=== PATIENT | female | born 1990 | race Hispanic/Latino ===

== ENCOUNTER 2018-05-25 18:14 | Emergency (ER) | payer OTHER ==
[2018-05-25] MEDS ORDERED: LISINOPRIL 5 MG TABLET ONE (19:29)
[2018-05-25 19:49] LABS: BASOPHILS % (AUTO) 1.4 % (0.0-5.0); EOSINOPHILS % (AUTO) 1.6 % (0.0-8.0); HEMATOCRIT 41.9 % (36-48); LYMPHOCYTES % (AUTO) 40.2 % (21.0-51.0); MEAN CORPUSCULAR HEMOGLOBIN 29.2 pg (27.0-33.0); MEAN CORPUSCULAR HGB CONC 34.1 g/dL (32.0-36.0); MEAN CORPUSCULAR VOLUME 85.5 fL (79-99); MONOCYTES % (AUTO) 3.5 % (3.0-13.0); NEUTROPHILS % (AUTO) 53.3 % (40.0-77.0); PLATELET COUNT (AUTO) 306 K/uL (130-400); RED CELL DISTRIBUTION WIDTH 13.3 % (11.0-15.5)
[2018-05-25 19:49] LABS: BILIRUBIN,URINE Negative (NEGATIVE); COLOR,URINE Yellow (YELLOW); GLUCOSE, URINE (UA) TRACE mg/dL (NEGATIVE); KETONES,URINE Negative (NEGATIVE); LEUKOCYTE ESTERASE ,URINE Negative (NEGATIVE); NITRATE,URINE Negative (NEGATIVE); OCCULT BLOOD,URINE Negative (NEGATIVE); PH,URINE 7.5 (5.0-8.0); PROTEIN,URINE Negative (NEGATIVE)
[2018-05-25 19:58] LABS: CREATININE 0.8 mg/dL (0.5-1.5); POTASSIUM 3.8 mmol/L (3.5-5.1)
[2018-05-25 20:03] LABS: ALBUMIN 3.9 g/dL (3.5-5.0); BILIRUBIN,TOTAL 0.3 mg/dL (0.2-1.0); TOTAL PROTEIN, SERUM 7.3 g/dL (6.0-8.3)
[2018-05-25 20:06] LABS: APPEARANCE,URINE SLIGHTLY CLOUDY (CLEAR)
[2018-05-25 20:07] LABS: AMORPHOUS SEDIMENT,UR Few /LPF (None Seen); BACTERIA,URINE Rare /HPF (None Seen); RBC,URINE 0-1 /HPF (0-1); WBC,URINE 0-1 /HPF (0-1)
[2018-05-25 20:08] LABS: SQUAMOUS EPITHELIAL CELL,UR Few /HPF (0-2)
== END 2018-05-25 21:29 | disposition home or self-care (01) ==
LOC: EDH 18:14
DX: I10 Essential (primary) hypertension (principal); R07.9 Chest pain, unspecified
CPT/HCPCS: 36415; 80053; 81001; 82550; 84484; 85025

== ENCOUNTER 2018-06-17 20:29 | Emergency (ER) | payer OTHER ==
[2018-06-17] MEDS ORDERED: METHYLPREDNISOLONE SOD SUCC 125MG/2ML VIAL ONE (21:00)
[2018-06-17] MEDS ORDERED: FAMOTIDINE 20MG TAB 20 MG TAB ONE (21:00)
[2018-06-17] MEDS ORDERED: DIPHENHYDRAMINE HCL 25 MG CAPSULE ONE (21:01)
== END 2018-06-17 21:59 | disposition home or self-care (01) ==
LOC: EDH 20:29
DX: T78.40XA Allergy, unspecified, initial encounter (principal); I10 Essential (primary) hypertension; X58.XXXA Exposure to other specified factors, initial encounter
CPT/HCPCS: 87880; 96372; 99283; J2930; Q0163

== ENCOUNTER 2018-09-19 19:53 | Emergency (ER) | payer BC, OTHER ==
[2018-09-19 20:44] LABS: APPEARANCE,URINE Clear (CLEAR); BILIRUBIN,URINE Negative (NEGATIVE); COLOR,URINE Yellow (YELLOW); GLUCOSE, URINE (UA) >=1000 mg/dL (NEGATIVE); KETONES,URINE Trace mg/dL (NEGATIVE); LEUKOCYTE ESTERASE ,URINE Negative (NEGATIVE); NITRATE,URINE Negative (NEGATIVE); OCCULT BLOOD,URINE Negative (NEGATIVE); PH,URINE 5.5 (5.0-8.0); PROTEIN,URINE Negative (NEGATIVE)
[2018-09-19 20:48] LABS: HCG,QUAL RESULT NEGATIVE (NEGATIVE)
[2018-09-19 20:49] LABS: BACTERIA,URINE Few /HPF (None Seen); RBC,URINE 0-1 /HPF (0-1)
[2018-09-19 20:50] LABS: SQUAMOUS EPITHELIAL CELL,UR Few /HPF (0-2); WBC,URINE 0-1 /HPF (0-1)
== END 2018-09-19 21:09 | disposition home or self-care (01) ==
LOC: EDH 19:53
DX: B02.9 Zoster without complications (principal); I10 Essential (primary) hypertension
CPT/HCPCS: 81001; 81003; 81025; 87486; 87797

== ENCOUNTER 2018-10-30 21:23 | Inpatient (IN) | payer OTHER ==
[~2018-10-30] VITALS: Ht 160 cm; Wt 87.7 kg
[2018-10-30 21:56] LABS: BASOPHILS % (AUTO) 0.4 % (0.0-5.0); EOSINOPHILS % (AUTO) 0.8 % (0.0-8.0); LYMPHOCYTES % (AUTO) 41.1 % (21.0-51.0); MEAN CORPUSCULAR HEMOGLOBIN 28.6 pg (27.0-33.0); MEAN CORPUSCULAR HGB CONC 34.2 g/dL (32.0-36.0); MEAN CORPUSCULAR VOLUME 83.8 fL (79-99); MONOCYTES % (AUTO) 3.9 % (3.0-13.0); NEUTROPHILS % (AUTO) 53.8 % (40.0-77.0); NUCLEATED RED BLOOD CELLS 0.1 % (0.0-0.19); PLATELET COUNT (AUTO) 329 K/uL (130-400); RED BLOOD CELL COUNT(AUTO) 5.25 MIL/uL (4.00-5.50); RED CELL DISTRIBUTION WIDTH 13.5 % (11.0-15.5); WHITE BLOOD COUNT (AUTO) 8.9 K/uL (4.8-10.8)
[2018-10-30 22:00] LABS: CREATININE 0.7 mg/dL (0.5-1.5); POTASSIUM 3.6 mmol/L (3.5-5.1)
[2018-10-30 22:01] LABS: INR 0.95 (0.85-1.15); PARTIAL THROMBOPLASTIN TIME 25.6 SEC (26.3-35.5)
[2018-10-30 22:06] LABS: ALBUMIN 4.2 g/dL (3.5-5.0); BILIRUBIN,TOTAL 0.4 mg/dL (0.2-1.0); TOTAL PROTEIN, SERUM 7.9 g/dL (6.0-8.3)
[2018-10-30 22:30] LABS: APPEARANCE,URINE Clear (CLEAR); BILIRUBIN,URINE Negative (NEGATIVE); COLOR,URINE Yellow (YELLOW); GLUCOSE, URINE (UA) >=1000 mg/dL (NEGATIVE); KETONES,URINE Negative (NEGATIVE); LEUKOCYTE ESTERASE ,URINE Negative (NEGATIVE); NITRATE,URINE Negative (NEGATIVE); OCCULT BLOOD,URINE Moderate (NEGATIVE); PROTEIN,URINE POS 1+ mg/dL (NEGATIVE)
[2018-10-30] MEDS ORDERED: LORAZEPAM 2 MG/ML 1 ML VIAL ONE (22:30)
[2018-10-30 22:36] LABS: HCG,QUAL RESULT NEGATIVE (NEGATIVE)
[2018-10-30 22:38] LABS: BACTERIA,URINE None Seen /HPF (None Seen); SQUAMOUS EPITHELIAL CELL,UR Few /HPF (0-2); WBC,URINE None Seen /HPF (0-1); YEAST,URINE BUDDING None Seen /HPF (None Seen)
[2018-10-30 22:39] LABS: AMPHET/METH SCREEN,URINE NEGATIVE (NEGATIVE); BARBITURATE SCREEN, URINE NEGATIVE (NEGATIVE); BENZODIAZEPINES SCREEN,URINE NEGATIVE (NEGATIVE); CANNABINOID SCREEN,URINE NEGATIVE (NEGATIVE); COCAINE SCREEN,URINE NEGATIVE (NEGATIVE); OPIATE SCREEN,URINE NEGATIVE (NEGATIVE); PHENCYCLIDINE SCREEN,URINE NEGATIVE (NEGATIVE)
[2018-10-30] MEDS ORDERED: ASPIRIN 81MG TAB.CHEW ONE (23:16)
[2018-10-30] MEDS ORDERED: CLONIDINE HCL 0.1 MG TABLET ONE (23:16)
[2018-10-31 01:45] VITALS: BP 155/118
[2018-10-31] MEDS ORDERED: LISI10TA7 PO (02:01)
[2018-10-31 03:23] VITALS: BP 146/90
[2018-10-31 04:11] LABS: CREATINE KINASE, TOTAL 65 U/L (21-232); MYOGLOBIN 34 ng/mL (10-92); TROPONIN I < 0.04 ng/mL (0.00-0.06)
[2018-10-31 07:30] VITALS: BP 156/104
[2018-10-31] MEDS: ENOXAPARIN SODIUM 40 MG/0.4 ML SYRINGE SQ SCH (07:41)
--- NOTE | 2018-10-31 08:00 | NUR ---
ASSESSMENT PT IS AAOX4 DENIES CP DENIES NV. COMPLAINS OF HEADACHE, TYLENOL PO GIVEN. NO NEURO DEFICITS NOTED AT THIS TIME. BREATHING PATTERN IS EVEN AND UNLABORED. VISITOR AT BEDSIDE, CALL LIGHT WITHIN REACH.
[2018-10-31] MEDS: ACETAMINOPHEN 325 MG TAB PO PRN ×2 (08:13→14:02)
[2018-10-31] MEDS ORDERED: LISINOPRIL 20 MG TABLET PO SCH (09:00)
[2018-10-31] MEDS ORDERED: GADODIAMIDE 5 MMOL/10 ML VIAL 5 MMOL/10 ML VIAL IV ONE (09:40)
[2018-10-31 11:13] VITALS: BP 135/92
[2018-10-31 11:14] LABS: CREATINE KINASE, TOTAL 59 U/L (21-232); MYOGLOBIN 32 ng/mL (10-92); TROPONIN I < 0.04 ng/mL (0.00-0.06)
--- NOTE | 2018-10-31 11:25 | NUR ---
DR SHELL BOSS SAW PATIENT, ORDERS RECEIVED.
--- NOTE | 2018-10-31 12:58 | NUR ---
CALLED IN CONSULT TO [facility]
--- NOTE | 2018-10-31 14:00 | NUR ---
EEG AT BEDSIDE
[2018-10-31 15:00] VITALS: BP 140/87
[2018-10-31] MEDS ORDERED: HYDRALAZINE HCL 20 MG/ML VIAL IM PRN (16:00)
--- NOTE | 2018-10-31 16:11 | NUR ---
RIGHT ARM TWITCHING/ TREMORS BP 168/11. NOTIFIED I MARITA PAC. ORDERS RECEIVED AND CARRIED OUT. HYDRALAZINE IV GIVEN.
--- NOTE | 2018-10-31 16:53 | NUR ---
BP RECHECK 157/89. RIGHT ARM NOT TWITCHING, PATIENT IS RESTING. FAMILY IN ROOM.
--- NOTE | 2018-10-31 19:05 | NUR ---
STATUS PATIENT IS SHAKING, BUT IS AWAKE AND ALERT. PATIENT AGITATED. FAMILY AT BEDSIDE. O2 SAT CHECK 96% NOTIFIED DR JOHNSON, ORDERS RECEIVED.
[2018-10-31] MEDS: LEVETIRACETAM 500 MG TABLET PO SCH (19:38)
[2018-10-31] MEDS: LISINOPRIL 20 MG TABLET PO SCH (19:38)
[2018-10-31] MEDS: LORAZEPAM 2 MG/ML 1 ML VIAL IM PRN (19:39)
[2018-10-31 21:01] VITALS: BP 159/93
[2018-10-31] MEDS ORDERED: HYDRALAZINE HCL 20 MG/ML VIAL IV PRN (22:00)
[2018-11-01 04:00] VITALS: BP 122/72
[2018-11-01 04:01] LABS: HEMATOCRIT 39.8 % (36-48); MEAN CORPUSCULAR HEMOGLOBIN 28.8 pg (27.0-33.0); MEAN CORPUSCULAR HGB CONC 34.3 g/dL (32.0-36.0); PLATELET COUNT (AUTO) 326 K/uL (130-400); RED BLOOD CELL COUNT(AUTO) 4.74 MIL/uL (4.00-5.50); RED CELL DISTRIBUTION WIDTH 13.5 % (11.0-15.5)
[2018-11-01 04:05] LABS: CREATININE 0.7 mg/dL (0.5-1.5); MAGNESIUM 1.9 mg/dL (1.80-2.40); POTASSIUM 3.5 mmol/L (3.5-5.1)
[2018-11-01 07:44] VITALS: BP 141/85
[2018-11-01] MEDS: LISINOPRIL 20 MG TABLET PO SCH ×2 (08:38→21:05)
[2018-11-01] MEDS: LEVETIRACETAM 500 MG TABLET PO SCH (08:38)
[2018-11-01] MEDS: ENOXAPARIN SODIUM 40 MG/0.4 ML SYRINGE SQ SCH (08:39)
[2018-11-01] MEDS: ACETAMINOPHEN 325 MG TAB PO PRN (08:53)
[2018-11-01 12:02] VITALS: BP 116/83
[2018-11-01 15:54] VITALS: BP 155/91
[2018-11-01 19:45] VITALS: BP 155/78
--- NOTE | 2018-11-01 19:45 | NUR ---
NN PATIENT IN ROOM, NO DISTRESS NOTED OR VERBALIZED AT THIS TIME. AT BEDSIDE. NO SEIZURE ACTIVITY REPORTED FROM OFF GOING SHIFT.
--- NOTE | 2018-11-01 20:55 | NUR ---
NN CALLED INTO ROOM BY NITZA MORA TO CHECK ON PATIENT DUE TO REPORTING SEIZURE ACTIVITY. PATIENT NOTED TO HAVE HANDS SHAKING AND PER HAD C/O HEAD PRIOR TO "GOING INTO A SEIZURE". PATIENT NOTED TO BE HOLDING HER BREATH AND BARING DOWN WHILE DISPLAYING CONTORTED BODY MOVEMENTS. THIS FIRST EPISODE LASTED 1 1/2 MINUTES. NOT RESPONSIVE TO VERBAL STIMULI AND STERNAL RUB. AFTER EPISODE PATIENT LAYING STILL IN BED IN RELAXED POSITION. ATTEMPTED TO ASSESS PUPILS BUT MET RESISTANCE AND UNABLE TO OPEN LIDS AND WHEN ABLE TO LIFT EYE LIDS PATIENT ROLLED EYES BACK, WHILE STILL LAYING IN RELAXED POSITION. PRN ATIVAN 1MG GIVEN @ 2100 DUE TO ANOTHER EPISODE OF PATIENT DISPLAYING BODY CONTORTING AND NOT RESPONDING TO VERBAL STIMULI. PER THIS IS THE "SEIZURES" SHE BEEN DISPLAYING WITHIN THE PAST 2 DAYS. WILL CONTINUE TO MONITOR. REMAINS AT BEDSIDE. BED AT LOWEST LEVEL WITH CALL LIGHT IN REACH.
[2018-11-01] MEDS: LORAZEPAM 2 MG/ML 1 ML VIAL IM PRN (21:00)
[2018-11-01] MEDS: LEVETIRACETAM 250 MG TABLET PO SCH (21:06)
--- NOTE | 2018-11-01 21:10 | NUR ---
NN PATIENT RESPONSIVE TO VERBAL STIMULI. TALKING TO PATIENT AND STATES THAT SHE WAS HAVING HEADACHE. CURRENTLY BP 155/78. ABLE TO TAKE NIGHT MEDS WITH OUT DIFFICULTY SWALLOWING. AFTER TOOK MEDS CLOSED EYES AGAIN AND NOT RESPONDING TO VERBAL STIMULI. PATIENT CONTORTING BODY IN 30 SEC TO 1 MINUTE INTERVALS WITH REST PERIODS IN BETWEEN X5. REMAINS AT BEDSIDE AND STATES THAT HE IS CONCERNED THAT IF ALL MEDICAL EXAMS BEING DONE ARE NEGATIVE WHAT COULD BE MAKING HER HAVE SEIZURES THAT ARE LASTING OVER AN HOUR. PATIENT CONTINUES TO HOLD BREATH AND BARE DOWN IN BED. NO SHAKING OR TWITCHING OF EXTREMITIES NOTED. WILL CONTINUE TO MONITOR FOR FURTHER ACTIVITY. PATIENT LAYING QUIETLY AT THIS TIME.
--- NOTE | 2018-11-01 22:00 | NUR ---
NN IN PATIENT'S ROOM DUE TO PATIENT HAVING ANOTHER "SEIZURE". PATIENT SITTING UP IN BED CONTORTING BODY AND ATTEMPTING TO BITE WHILE HOLDING HER HAND. PATIENT THEN SMIRKED AFTER ATTEMPTING TO BITE HIM, PATIENT REMAINS WITH EYES CLOSED AND NOT RESPONDING TO CALLING HER NAME. PATIENT ASSISTED DOWN TO LAYING POSITION. PATIENT NOTED TO START CONTORTING HER BODY AND PUT HANDS TO HER NECK AND ATTEMPTING TO SQUEEZE. HANDS REMOVED FROM NECK AND PATIENT BACK TO RESTING POSITION. AT BEDSIDE, PATIENT IN NO DISTRESS.
--- NOTE | 2018-11-01 22:10 | NUR ---
NN PER MORGAN, PCP ATTEMPTING TO BITE AND PCP WHILE SMIRKING WITH EYES CLOSED. NOTED BY PCP TO BE ATTEMPTING TO PUT HANDS AROUND HER NECK AGAIN AND MOVE HANDS AWAY. STATED THAT PATIENT GURGLED AND AND THEN TOOK DEEP BREATH AND THEN BECAME RESPONSIVE. ASKED IF OK AND STATED "NO, GLEN IS AT THE DOOR TRYING TO KILL ME". STATES GLEN IS HIS EX-. PATIENT REORIENTED THAT SHE WAS IN HOSPITAL AND THAT NO ONE WS AT THE DOOR TRYING TO HURT HER. REMAINS AT BEDSIDE. CALL PLACED TO DR JOHNSON AND INFORMED OF CURRENT SITUATION AND ORDERS GIVEN FOR 1:1 SITTER AND NEW CONSULT FOR PSYCH EVAL. AND STATED TO INFORM DR GOFF IN AM OF PATIENT BEHAVIOR. SERGEY,ASSOCIATE VETERINARIAN MADE AWARE OF NEW ORDERS AND CURRENT SITUATION.
--- NOTE | 2018-11-01 23:30 | NUR ---
NN PATIENT IN NO DISTRESS NO FURTHER "SEIZURES" DISPLAYED. EXTENDED FAMILY MEMBERS VISITING AT THIS TIME AND PATIENT EATING. WILL CONTINUE TO MONITOR, AT BEDSIDE.
[2018-11-01 23:45] VITALS: BP 160/104
--- NOTE | 2018-11-02 00:10 | NUR ---
NN EXTENDED FAMILY MEMBERS LEFT AND PATIENT RESTING QUIETLY AT THIS TIME.
[2018-11-02 04:05] VITALS: BP 122/75
[2018-11-02 07:26] VITALS: BP 118/69
[2018-11-02] MEDS: LISINOPRIL 20 MG TABLET PO SCH ×2 (10:03→20:49)
[2018-11-02] MEDS: LEVETIRACETAM 500 MG TABLET PO SCH (10:05)
[2018-11-02] MEDS: ENOXAPARIN SODIUM 40 MG/0.4 ML SYRINGE SQ SCH (10:06)
[2018-11-02 10:17] LABS: THYROID STIMULATING HORMONE 3.43 uIU/mL (0.36-3.74)
[2018-11-02 11:29] VITALS: BP 148/82
--- NOTE | 2018-11-02 14:30 | NUR ---
INITIAL NOTE PT SEEN AT BEDSIDE W MOM, PARTNEER, AND CHILD, AAOX3, [employer], EMPLOYED; mom to porvide ride home .Pt admitted for vague symptoms- syncope, poss seizures, etc. CM asked if ever has hx of diabletes?. hgb aic is 10 no knownledge of dm per pt., poss need for Dm teaching on discharge. dc plan is home. Addendum: 11/03/18 at 0742 by GRETCHEN WOODALL RN CM Amended: Links added.
[2018-11-02] MEDS ORDERED: POTASSIUM CHLORIDE 20MEQ/100ML 100 ML IV PRN (15:00)
[2018-11-02] MEDS ORDERED: POTASSIUM CHLORIDE 20 MEQ ERTAB PO PRN (15:00)
[2018-11-02] MEDS ORDERED: POTASSIUM CHLORIDE 10% ELIXIR 20 MEQ/15 ML UDCUP PO PRN (15:00)
[2018-11-02] MEDS ORDERED: LIDOCAINE HCL-MPF 1% 2ML VIAL IVP PRN (15:00)
[2018-11-02 16:23] VITALS: BP 143/93
[2018-11-02] MEDS: INSULIN HUMULIN R 100 UNIT/ML 3ML SQ SCH ×2 (16:32→20:37)
--- NOTE | 2018-11-02 19:11 | NUR ---
Nutrition Intervention: Nutrition consult for New Onset of DM. Pt. admitted with Dx of Syncope, numbness. Pt. on Heart Healthy diet with good p.o. intake. Labs reviewed(Alb 4.2, BG 304, HgbA1c 10.0%). LBM: 11/01/18. SR-21, elastic. BMI: 34.1, Obesity Grade 1. Pt. educated on Diabetic diet and provided with education material. Pt. verbalized understanding. Recommendations: 1) Rec. 60gm CCD Heart Healthy diet. 2) Diabetic diet education given to pt. 3) Continue to monitor pt's nutritional status. 4) Consult RD as nutrition concerns arise. Addendum: 11/02/18 at [address] Amended: Links added.
[2018-11-02 19:32] VITALS: BP 148/98
[2018-11-02] MEDS: LEVETIRACETAM 250 MG TABLET PO SCH (20:49)
[2018-11-02 23:42] VITALS: BP 139/86
[2018-11-03 03:51] VITALS: BP 129/71
[2018-11-03 04:01] LABS: EOSINOPHILS % (AUTO) 2.5 % (0.0-8.0); HEMATOCRIT 40.5 % (36-48); LYMPHOCYTES % (AUTO) 44.4 % (21.0-51.0); MEAN CORPUSCULAR HEMOGLOBIN 28.7 pg (27.0-33.0); MEAN CORPUSCULAR HGB CONC 33.9 g/dL (32.0-36.0); MEAN CORPUSCULAR VOLUME 84.7 fL (79-99); MONOCYTES % (AUTO) 5.1 % (3.0-13.0); PLATELET COUNT (AUTO) 330 K/uL (130-400); RED BLOOD CELL COUNT(AUTO) 4.78 MIL/uL (4.00-5.50); RED CELL DISTRIBUTION WIDTH 13.3 % (11.0-15.5); WHITE BLOOD COUNT (AUTO) 8.9 K/uL (4.8-10.8)
[2018-11-03 04:20] LABS: CREATININE 0.8 mg/dL (0.5-1.5); MAGNESIUM 1.8 mg/dL (1.80-2.40); POTASSIUM 3.9 mmol/L (3.5-5.1)
[2018-11-03] MEDS: INSULIN HUMULIN R 100 UNIT/ML 3ML SQ SCH ×2 (06:22→12:23)
[2018-11-03 07:44] VITALS: BP 121/73
--- NOTE | 2018-11-03 09:00 | NUR ---
FOLLOWED UP ON DR. TAYLOR CONSULTATION. WAITING FOR CONFIRMATION.
[2018-11-03] MEDS: LEVETIRACETAM 500 MG TABLET PO SCH (09:23)
[2018-11-03] MEDS: LISINOPRIL 20 MG TABLET PO SCH (09:23)
[2018-11-03] MEDS: ENOXAPARIN SODIUM 40 MG/0.4 ML SYRINGE SQ SCH (09:24)
[2018-11-03 11:47] VITALS: BP 133/82
--- NOTE | 2018-11-03 14:17 | NUR ---
DR. TAYLOR AT BEDSIDE.
--- NOTE | 2018-11-03 15:06 | NUR ---
GAVE PATIENT D/C INSTRUCTIONS. INFORMED PATIENT ABOUT MD FOLLOW UP APPOINTMENTS. INFORMED PATIENT ABOUT NEW MEDICATION PRESCRIPTIONS. D/C IV RIGHT AC. ANSWERED PATIENT QUESTIONS.
== END 2018-11-03 16:49 | disposition home or self-care (01) | DRG 101 ==
LOC: EDH 21:23 → EDHIP 10-31 00:20 → OBSVTOIN 10-31 00:20 → 2DH 10-31 01:50
PROVIDERS: ADMIT Family Medicine; ATTEND Family Medicine
DX: R56.9 Unspecified convulsions (principal); R55 Syncope and collapse; R44.1 Visual hallucinations; I10 Essential (primary) hypertension; E11.9 Type 2 diabetes mellitus without complications; F32.9 Major depressive disorder, single episode, unspecified; F41.1 Generalized anxiety disorder; Z72.0 Tobacco use; Z79.84 Long term (current) use of oral hypoglycemic drugs; Z79.899 Other long term (current) drug therapy; Z82.49 Family history of ischemic heart disease and other diseases of the circulatory system
CPT/HCPCS: 36415; 70450; 70553; 80048; 80053; 80305; 81001; 81025; 82550; 82948; 83036; 83690; 83735; 83874; 84439; 84443; 84479; 84484; 85025; 85027; 85378; 85610; 85730; 93005; 93306; 95816; 99291; A9579; G0378; J0360; J1650; J1815; J2060

== ENCOUNTER 2018-11-29 08:20 | Emergency (ER) | payer OTHER ==
[~2018-11-29 08:20] MED LIST: LISI10TA7 PO
[2018-11-29] MEDS ORDERED: KETOROLAC TROMETHAMINE 60 MG/2 ML VIAL ONE (08:46)
[2018-11-29] MEDS ORDERED: HYDROCODONE/ACETAMINOPHEN 10/325 MG TAB ONE (08:46)
[2018-11-29 09:11] LABS: APPEARANCE,URINE CLEAR (CLEAR); BILIRUBIN,URINE SMALL (NEGATIVE); COLOR,URINE YELLOW (YELLOW); GLUCOSE, URINE (UA) NEGATIVE (NEGATIVE); KETONES,URINE 40 mg/dL (NEGATIVE); LEUKOCYTE ESTERASE ,URINE NEGATIVE (NEGATIVE); NITRATE,URINE NEGATIVE (NEGATIVE); OCCULT BLOOD,URINE TRACE-INTACT (NEGATIVE); PROTEIN,URINE TRACE mg/dL (NEGATIVE)
[2018-11-29 09:12] LABS: BASOPHILS % (AUTO) 0.3 % (0.0-5.0); EOSINOPHILS % (AUTO) 1.8 % (0.0-8.0); HEMATOCRIT 39.7 % (36-48); LYMPHOCYTES % (AUTO) 32.6 % (21.0-51.0); MEAN CORPUSCULAR HEMOGLOBIN 28.8 pg (27.0-33.0); MEAN CORPUSCULAR HGB CONC 34.5 g/dL (32.0-36.0); MEAN CORPUSCULAR VOLUME 83.6 fL (79-99); MONOCYTES % (AUTO) 4.6 % (3.0-13.0); NEUTROPHILS % (AUTO) 60.7 % (40.0-77.0); NUCLEATED RED BLOOD CELLS 0.1 % (0.0-0.19); PLATELET COUNT (AUTO) 282 K/uL (130-400); RED BLOOD CELL COUNT(AUTO) 4.75 MIL/uL (4.00-5.50); RED CELL DISTRIBUTION WIDTH 13.3 % (11.0-15.5); WHITE BLOOD COUNT (AUTO) 7.5 K/uL (4.8-10.8)
[2018-11-29 09:13] LABS: HCG,QUAL RESULT NEGATIVE (NEGATIVE)
[2018-11-29 09:29] LABS: CREATININE 0.7 mg/dL (0.5-1.5)
[2018-11-29 09:35] LABS: ALBUMIN 4.2 g/dL (3.5-5.0); BILIRUBIN,TOTAL 0.3 mg/dL (0.2-1.0); TOTAL PROTEIN, SERUM 7.8 g/dL (6.0-8.3)
[2018-11-29 09:52] LABS: BACTERIA,URINE Many /HPF (None Seen); MUCUS,URINE Few LPF (None Seen); RBC,URINE 0-1 /HPF (0-1); SQUAMOUS EPITHELIAL CELL,UR Moderate /HPF (0-2); WBC,URINE 0-1 /HPF (0-1)
== END 2018-11-29 10:25 | disposition home or self-care (01) ==
LOC: EDH 08:20
DX: S33.5XXA Sprain of ligaments of lumbar spine, initial encounter (principal); I10 Essential (primary) hypertension; E11.9 Type 2 diabetes mellitus without complications; Z98.51 Tubal ligation status; X58.XXXA Exposure to other specified factors, initial encounter; Y93.89 Activity, other specified; Y92.89 Other specified places as the place of occurrence of the external cause; Y99.8 Other external cause status
CPT/HCPCS: 36415; 72100; 80053; 81001; 81025; 85025; 96372; 99285; J1885

== ENCOUNTER 2019-07-08 16:48 | Emergency (ER) | payer BC, OTHER ==
[2019-07-08] MEDS ORDERED: EPINEPHRINE 1 MG/ML AMPULE ONE (17:12)
[2019-07-08] MEDS ORDERED: FAMOTIDINE/PF 20 MG/2 ML VIAL IV ONE (17:13)
[2019-07-08] MEDS ORDERED: DiphenhydrAMINE HCL 50 MG/ML VIAL ONE (17:13)
== END 2019-07-08 19:00 | disposition home or self-care (01) ==
LOC: EDH 16:48
DX: T63.441A Toxic effect of venom of bees, accidental (unintentional), initial encounter (principal); I10 Essential (primary) hypertension; E11.9 Type 2 diabetes mellitus without complications
CPT/HCPCS: 96372; 96374; 96375; 99284; J0171; J1200; J3490